=== PATIENT | male | born 1955 | race Caucasian/White ===

== ENCOUNTER 2021-06-03 19:24 | Emergency (ER) | payer OTHER ==
[~2021-06-03] VITALS: Ht 190.5 cm; Wt 99.8 kg
--- NOTE | ~2021-06-03 | EMS ---
[address] [address] EMS Patient Care Report Name: SCOTT MEYER Room #: [facility]..#: [id number] Admission: Attend Phys: Discharge: Date of : 59 Report #: [id number] THIS REPORT FOR: //name// Report Transmitted: 06/03/2021 19:27 EMS Care Summary [facility] MED-ACT Incident [id number] @ 06/03/2021 18:28 Incident Location [address] [place] [address] Patient SCOTT MEYER Male, 65 Years 1955 Patient Address [address] [place] [address] Patient History Lupus, Patient Allergies No known allergies, Patient Medications Oxycodone, Gabapentin, Metoprolol, Cyclobenzaprine, Alprazolam, Chief Complaint Slurred speech Disposition Transported No Lights/[place] Reason Unconscious/Fainting Transported To [facility] Narrative EMS was called by the pt's who was contacted by a friend who was visiting the pt. was not home at the time. The pt's friend was concerned that the pt.'s was acting inappropriately and that his speech was slurred. arrived home to find the same abnormal findings. The pt. is convinced that there is [address] [address] EMS Patient Care Report Name: SCOTT MEYER Room #: [facility]#: [id number] Admission: Attend Phys: Discharge: Date of : 59 Report #: [id number] nothing wrong. He denies alcohol use today. When asked about medications the initially stated that he only takes gabapentin for back pain. Later into the call, the pt. also reports taking some oxycodone this afternoon as well along with 3 100 mg gabapentin around "lunch time". He gave EMS a bottle of oxycodone plus a bottle of alprazolam. It is uncertain whether he took the alprazolam tonight. He denies headache, weakness on one side, chest pain. He has no prior cardiac or CVA hx. No other complaints noted. Last known normal is unconfirmed as the pt. was by himself most of the day and the pt's friend had left the scene. Arrived to find the pt. standing in a hallway. He was alert and had noticeable slurred speech. Cinn assessment was otherwise negative. Pt. falls asleep and mildly desaturates when he is left alone. It took several minutes to determine the pt's med hx and medication use. Both the and pt. were poor historians. T(x)- monitoring only Outcome- No changes were noted in the pt's condition upon arrival at [facility]. Initial Vitals @19:04P: 82,SpO2: 93,CA Suspected: false @19:14P: 70,BP: 143/82,SpO2: 98, @19:06P: 66,BP: 141/91,SpO2: 96, @18:41P: 69,R: 16,BP: 132/74,Pain: 0/10,GCS: 15,Temp: 97.4F,Glucose: 113,SpO2: 92,Revised Trauma: 12, Impression Stroke Procedures @19:04 12-Lead ECG Response: UnchangedSucceeded @19:04 IV Therapy - Saline Lock 10cc (20 ga) Site: Antecubital-Right Response: UnchangedSucceeded @19:08 Oxygen FlowRate: 1 Device: Nasal Cannula (NC) Response: ImprovedSucceeded Timeline 18:25,Call Received 18:25,Psap Call 18:28,Dispatched 18:28,En Route 18:35,[place] [address] EMS Patient Care Report Name: SCOTT MEYER Room #: [facility].#: [id number] Admission: Attend Phys: Discharge: Date of : 59 Report #: [id number] 18:35,At Patient 18:41,BP: 132/74 M,PULSE: 69,RR: 16 R,SPO2: 92 Ox,ETCO2: ,B,PAIN: 0,GCS: 15, 19:04,IV Therapy - Saline Lock 10cc 20 ga Site: Antecubital-Right,Response: UnchangedSucceeded, 19:04,12-Lead ECG,Response: UnchangedSucceeded, 19:04,BP: / M,PULSE: 82,RR: R,SPO2: 93 Ox,ETCO2: ,BG: ,PAIN: ,GCS: , 19:06,BP: 141/91 M,PULSE: 66,RR: R,SPO2: 96 Ox,ETCO2: ,BG: ,PAIN: ,GCS: , 19:06,Depart Scene 19:08,Oxygen FlowRate: 1 Device: Nasal Cannula (NC) Response: ImprovedSucceeded, 19:14,BP: 143/82 M,PULSE: 70,RR: R,SPO2: 98 Ox,ETCO2: ,BG: ,PAIN: ,GCS: , 19:23,At Destination 19:37,Call Closed Disclaimer [email or web address] Copyright 2020 [employer] This EMS Care Summary contains data elements from the applicable legal record (which may be displayed differently). It is designed to provide pertinent information for the following purposes: continuity of care, clinical quality, and state data reporting. The complete legal record is available to ED staff and administrators of the receiving hospital in [employer]'s Patient Tracker. All data is provided "as is."
[2021-06-03 20:08] LABS: ABSOLUTE NEUTROPHILS 3.3 thou/uL (1.4-8.2); BASOPHILS 0.6 % (0.0-2.0); EOSINOPHILS 1.5 % (0.0-3.0); MCH 30.9 pg (26.0-34.0); MCHC 32.6 g/dL (28.0-37.0); MCV 94.7 fL (80.0-100.0); MONOCYTES 8.2 % (1.0-8.0); PLATELET COUNT 237 thou/uL (150-400); POLYS 38.7 % (36.0-66.0); RBC 4.54 mil/uL (4.50-6.00); RDW 15.9 % (10.5-14.5); WBC 8.6 thou/uL (4.0-11.0)
[2021-06-03 20:16] LABS: CALCIUM 8.2 mg/dL (8.5-10.1); POTASSIUM 4.7 mmol/L (3.5-5.1)
[2021-06-03 20:25] LABS: APTT 27.2 Seconds (24.5-32.8); INR 1.01
[2021-06-03 20:26] LABS: ALBUMIN 3.5 g/dL (3.4-5.0); TOTAL BILIRUBIN 0.2 mg/dL (0.2-1.0); TOTAL PROTEIN 6.9 g/dL (6.4-8.2)
[2021-06-03 22:13] VITALS: BP 133/83
== END 2021-06-03 22:15 | disposition home or self-care (01) ==
LOC: ER 19:24
PROVIDERS: Emergency Medicine
DX: T40.2X1A Poisoning by other opioids, accidental (unintentional), initial encounter (principal); R47.81 Slurred speech; Y92.89 Other specified places as the place of occurrence of the external cause